=== PATIENT | male | born 1970 | race Caucasian/White ===

== ENCOUNTER 2019-03-05 09:01 | Emergency (ER) | payer OTHER ==
[~2019-03-05] VITALS: Ht 180.3 cm; Wt 75.7 kg
[~2019-03-05 09:01] MED LIST: VASOTEC20 M1
[2019-03-05] MEDS ORDERED: SKELAXIN800 MG PO (12:57)
[2019-03-05] MEDS ORDERED: VOLTAREN100 GM TOP (12:57)
[2019-03-05] MEDS ORDERED: KETO10TA2 PO (12:57)
== END 2019-03-05 13:05 | disposition home or self-care (01) ==
LOC: ER 09:01
DX: M75.81 Other shoulder lesions, right shoulder (principal)